=== PATIENT | male | born 1955 | race Caucasian/White ===

== ENCOUNTER 2020-09-16 10:19 | Outpatient (REF) | payer OTHER, SELFPAY ==
[2020-09-16 16:07] LABS: Abs Immature Grans 0.02 10^3/uL (0.0-0.06); Absolute Basophil Count 0.08 10^3/uL (0.0-0.2); Absolute Eosinophil Count 0.09 10^3/uL (0.0-0.7); Absolute Monocyte Count 0.49 10^3/uL (0.1-0.8); Absolute Neutrophil Count 4.12 10^3/uL (1.2-6.7); Basophils % 1.3; Eosinophils % 1.5; HCT 48.4 % (40.0-50.0); HGB 16.5 g/dL (13.5-17.5); Immature Grans % 0.3; MCH 28.9 pg (27.0-33.0); MCHC 34.1 % (32.0-36.0); MCV 84.9 fL (80-95); MPV 10.5 fL (8.0-11.0); Monocytes % 8.2; Neutrophils % 68.7; Nucleated RBC 0 %; Platelet Count 242 10^3/uL (130-400); RDW 11.9 % (11.8-14.1); RDW-SD 36.1 fL
[2020-09-16 16:22] LABS: ALT 32 U/L (16-63); AST 19 U/L (15-37); Albumin 4.2 g/dL (3.4-5.0); Alkaline Phosphatase 89 U/L (46-116); Anion Gap 9.3 mmol/L (3-11); BUN 12 mg/dL (7-18); Bilirubin, Total 0.6 mg/dL (0.2-1.0); CO2 26.7 mmol/L (21.0-32.0); CREATININE 1.09 mg/dL (0.70-1.30); Calcium 8.7 mg/dL (8.5-10.1); Calculated LDL 153 mg/dL (<100); Chloride 104 mmol/L (98-107); Cholesterol 212 mg/dL (<200); Glucose 106 mg/dL (74-106); HDL Cholesterol 34 mg/dL (40-60); Potassium 4.1 mmol/L (3.5-5.1); Sodium 140 mmol/L (136-145); Total Protein 7.1 g/dL (6.4-8.2); Triglyceride 126 mg/dL (<150)
== END 2020-09-16 10:39 ==
LOC: NCHCN 10:19
PROVIDERS: Visit Provider Physician Assistant
DX: E66.9 Obesity, unspecified (principal); F10.10 Alcohol abuse, uncomplicated; Z13.220 Encounter for screening for lipoid disorders; Z13.1 Encounter for screening for diabetes mellitus; Z83.2 Family history of diseases of the blood and blood-forming organs and certain disorders involving the immune mechanism; R04.0 Epistaxis
CPT/HCPCS: 80053; 80061; 85025

== ENCOUNTER 2022-04-12 09:27 | Outpatient (CLI) | payer MEDICARE, SELFPAY ==
--- NOTE | 2022-04-12 09:15 | DI.RAD_ITS ---
Exam(s) XR KNEE LT 3V AP,LAT,TERRA EXAM: XR KNEE LT 3V AP,LAT,TERRA CLINICAL HISTORY: left knee pain TECHNIQUE: COMPARISON: MR MR KNEE LT W/WO CONTRAST from 03/21/2022 FINDINGS: Three views were obtained. The cartilaginous joint spaces appear well maintained. 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 However, borders are somewhat diffuse and the possibility of other et iology including neoplasm is not entirely excluded. Correlation with bone scan or MRI suggested. I would note that a recent MRI from [facility] probably does not include the area in ques tion of the proximal tibia. IMPRESSION: Probably benign proximal tibial lesion, bone scan or MRI suggested for confirmation. RADIATION DOSE DELIVERED: Total DLP
== END 2022-04-12 09:28 | disposition home or self-care (01) ==
LOC: DIORS 09:27
PROVIDERS: PCP Physician Assistant; Referring Provider Physician Assistant; Visit Provider Student in an Organized Health Care Education/Training Program
DX: M71.22 Synovial cyst of popliteal space [Baker], left knee (principal)
CPT/HCPCS: 73562; 99203

== ENCOUNTER 2022-06-27 10:02 | Outpatient (REF) | payer MEDICARE, SELFPAY ==
[2022-06-27 12:15] LABS: C-Reactive Protein 0.71 mg/dL (0.0-0.3); Uric Acid 7.9 mg/dL (3.5-7.2)
== END 2022-06-27 10:03 | disposition home or self-care (01) ==
LOC: NCHCN 10:02
PROVIDERS: PCP Physician Assistant; Visit Provider Internal Medicine
DX: M10.9 Gout, unspecified (principal)
CPT/HCPCS: 84550; 86140

== ENCOUNTER 2022-07-19 13:47 | Outpatient (REF) | payer MEDICARE, SELFPAY ==
[2022-07-19 15:57] LABS: Abs Immature Grans 0.01 10^3/uL (0.0-0.06); Absolute Basophil Count 0.07 10^3/uL (0.0-0.2); Absolute Lymphocyte Count 1.03 10^3/uL (1.2-3.4); Absolute Monocyte Count 0.38 10^3/uL (0.1-0.8); Basophils % 1.4; HCT 46.8 % (40.0-50.0); HGB 16.2 g/dL (13.5-17.5); Immature Grans % 0.2; Lymphocytes % 20.6; MCH 29.1 pg (27.0-33.0); MCHC 34.6 % (32.0-36.0); MCV 84 fL (80-95); MPV 9.8 fL (8.0-11.0); Monocytes % 7.6; Neutrophils % 68.2; Platelet Count 240 10^3/uL (130-400); RBC 5.56 10^6/uL (4.36-5.78); RDW-SD 36.5 fL; WBC 4.99 10^3/uL (4.4-10.8)
[2022-07-19 16:11] LABS: Uric Acid 7.7 mg/dL (3.5-7.2)
== END 2022-07-19 13:48 | disposition home or self-care (01) ==
LOC: NCHCN 13:47
PROVIDERS: PCP Physician Assistant; Visit Provider Physician Assistant
DX: M10.9 Gout, unspecified (principal)
CPT/HCPCS: 84550; 85025

== ENCOUNTER 2022-08-17 09:55 | Outpatient (REF) | payer MEDICARE, SELFPAY ==
[2022-08-17 20:48] LABS: BUN 13 mg/dL (7-18); CREATININE 1.2 mg/dL (0.70-1.30); Calcium 8.6 mg/dL (8.5-10.1); Chloride 103 mmol/L (98-107); Estimated GFR 66.28 (mL/min/1.73m2); Glucose 147 mg/dL (74-106); Sodium 137 mmol/L (136-145)
== END 2022-08-17 09:56 | disposition home or self-care (01) ==
LOC: NCHCN 09:55
PROVIDERS: PCP Physician Assistant; Visit Provider Physician Assistant
DX: M10.9 Gout, unspecified (principal)
CPT/HCPCS: 80048; 84550

== ENCOUNTER 2023-06-04 17:59 | Outpatient (REF) | payer MEDICARE, SELFPAY ==
[2023-06-04 19:10] LABS: Abs Immature Grans 0.02 10^3/uL (0.0-0.06); Absolute Lymphocyte Count 1.56 10^3/uL (1.2-3.4); Absolute Monocyte Count 0.48 10^3/uL (0.1-0.8); Absolute Neutrophil Count 5.06 10^3/uL (1.2-6.7); Basophils % 1.3; Eosinophils % 2.7; HGB 16.8 g/dL (13.5-17.5); Immature Grans % 0.3; MCV 83 fL (80-95); MPV 10.4 fL (8.0-11.0); Monocytes % 6.5; Neutrophils % 68.2; Platelet Count 269 10^3/uL (130-400); RDW 12.2 % (11.8-14.1); RDW-SD 36.8 fL; WBC 7.42 10^3/uL (4.4-10.8)
[2023-06-04 19:34] LABS: Anion Gap 10.5 mmol/L (3-11); BUN 16 mg/dL (7-18); CO2 24.5 mmol/L (21.0-32.0); CREATININE 1.4 mg/dL (0.70-1.30); Chloride 102 mmol/L (98-107); Estimated GFR 54.75 (mL/min/1.73m2); Glucose 108 mg/dL (74-106); NT-proBNP 57 pg/mL (<300); Potassium 4.1 mmol/L (3.5-5.1); Sodium 137 mmol/L (136-145); TSH 3.17 uIU/mL (0.36-3.74)
[2023-06-04 19:44] LABS: Troponin I < 50 ng/L (<or=60)
== END 2023-06-04 18:00 | disposition home or self-care (01) ==
LOC: NCHCN 17:59
PROVIDERS: PCP Physician Assistant; Visit Provider Internal Medicine
DX: R53.83 Other fatigue (principal); R07.9 Chest pain, unspecified
CPT/HCPCS: 80048; 83880; 84443; 84484; 85025

== ENCOUNTER 2023-06-07 11:44 | Outpatient (REF) | payer MEDICARE, SELFPAY ==
[2023-06-07 18:58] LABS: Bilirubin Negative (Negative); Blood Negative (Negative); Clarity Clear (Clear); Glucose Negative (Negative); Ketones Negative (Negative); Leukocyte Esterase Negative (Negative); Nitrite Negative (Negative); Specific Gravity 1.015 (1.005-1.025); Urobilinogen 0.2 mg/dL (Up to 0.2)
[2023-06-11 15:22] LABS: Albumin, Urine % 30.1 %; Albumin, Urine mg/dL 3 mg/dL; Globulins, Urine % 69.9 %; Globulins, Urine mg/dL 6 mg/dL; Immunotyping, Urine (See Note); Total Protein Urine 9 mg/dL (See Note)
== END 2023-06-07 11:45 | disposition home or self-care (01) ==
LOC: NCHCN 11:44
PROVIDERS: PCP Physician Assistant; Visit Provider Internal Medicine
DX: N18.31 Chronic kidney disease, stage 3a (principal)
CPT/HCPCS: 84156; 84166; 86335; 81003

== ENCOUNTER 2024-03-20 09:27 | Outpatient (REF) | payer MEDICARE, SELFPAY ==
[2024-03-20 18:53] LABS: ALT 70 U/L (16-63); AST 34 U/L (15-37); Albumin 3.9 g/dL (3.4-5.0); Alkaline Phosphatase 141 U/L (46-116); Anion Gap 8.8 mmol/L (3-11); BUN 14 mg/dL (7-18); Bilirubin, Total 0.74 mg/dL (0.2-1.0); CO2 26.2 mmol/L (21.0-32.0); CREATININE 1.1 mg/dL (0.70-1.30); Calcium 8.4 mg/dL (8.5-10.1); Chloride 107 mmol/L (98-107); Estimated GFR 73.12 (mL/min/1.73m2); Glucose 149 mg/dL (74-106); LDL CHOLESTEROL 71 mg/dL (<100); Sodium 142 mmol/L (136-145); Total Protein 6.8 g/dL (6.4-8.2)
[2024-03-21 19:22] LABS: PSA, Diagnostic 70.4 ng/mL (<=4.5)
== END 2024-03-20 09:28 | disposition home or self-care (01) ==
LOC: NCHCN 09:27
PROVIDERS: PCP Physician Assistant; Visit Provider Physician Assistant
DX: I25.10 Atherosclerotic heart disease of native coronary artery without angina pectoris (principal); N40.1 Benign prostatic hyperplasia with lower urinary tract symptoms
CPT/HCPCS: 80053; 83721; 84153

== ENCOUNTER 2024-03-27 08:33 | Outpatient (REF) | payer MEDICARE, SELFPAY ==
[2024-03-27 18:30] LABS: HCT 46.7 % (40.0-50.0); HGB 16.3 g/dL (13.5-17.5); MCH 29.5 pg (27.0-33.0); MCHC 34.9 % (32.0-36.0); MCV 84 fL (80-95); MPV 10.8 fL (8.0-11.0); Platelet Count 189 10^3/uL (130-400); RBC 5.53 10^6/uL (4.36-5.78); RDW 11.9 % (11.8-14.1); WBC 6.93 10^3/uL (4.4-10.8)
[2024-03-27 18:45] LABS: Iron 105 ug/dL (65-175); Total Iron Binding Capacity 312 ug/dL (250-450); Transferrin Sat 34 % (20-55)
[2024-03-27 18:55] LABS: Ferritin 284 ng/mL (26-388)
[2024-03-28 18:16] LABS: HBs Antibody, Quant <3.1 mIU/mL (See Note); Hepatitis B Surface Ab Negative (See Note)
[2024-03-28 18:27] LABS: Hepatitis B Surface Ag Negative (Negative)
[2024-03-28 18:57] LABS: Hepatitis C Ab w Rflx HCV PCR Negative (Negative)
== END 2024-03-27 08:34 | disposition home or self-care (01) ==
LOC: NCHCN 08:33
PROVIDERS: PCP Physician Assistant; Visit Provider Physician Assistant
DX: K76.89 Other specified diseases of liver (principal)
CPT/HCPCS: 85027; 86706; 86803; 87340; 82728; 83540; 83550

== ENCOUNTER → 2024-03-27 14:07 | Outpatient (BNVA) | payer MEDICARE, SELFPAY | PROVIDERS: PCP Physician Assistant; Referring Provider Physician Assistant; Visit Provider Urology | DX: N40.1 Benign prostatic hyperplasia with lower urinary tract symptoms (principal); R35.0 Frequency of micturition; N42.89 Other specified disorders of prostate; R97.20 Elevated prostate specific antigen [PSA] | CPT/HCPCS: 99215 ==

== ENCOUNTER → 2024-03-31 10:40 | Outpatient (BNVA) | payer MEDICARE, SELFPAY | PROVIDERS: PCP Physician Assistant; Referring Provider Physician Assistant; Visit Provider Urology | DX: N42.89 Other specified disorders of prostate (principal); R97.20 Elevated prostate specific antigen [PSA] | CPT/HCPCS: 55700; 76872 ==

== ENCOUNTER 2024-03-31 16:11 | Outpatient (REF) | payer MEDICARE, SELFPAY ==
--- NOTE | 2024-03-31 11:20 | PROST_PTH ---
PATIENT: Vitor Grande LOC: [facility] U#:[id number] AGE/SX: 68/M ROOM: RE03/31/[address]: Morgan Jewell MD : [id number] BED: DIS: 03/31/2024 SPEC #: [id number] RECD: 03/31/24 17:12 STATUS: SHARRI RE #: [id number] SALINAS: 03/31/24 11:[address]: Morgan Jewell DEPT: Surgical Specimen RECD BY: Katya Dahl ENTERED: 03/31/24 17:15 SP TYPE: PROST OTHR DR: Nathalia Arreaga Tissues: 1 - PROSTATE NEEDLE BIOPSY 2 - PROSTATE NEEDLE BIOPSY 3 - PROSTATE NEEDLE BIOPSY 4 - PROSTATE NEEDLE BIOPSY 5 - PROSTATE NEEDLE BIOPSY 6 - PROSTATE NEEDLE BIOPSY 7 - PROSTATE NEEDLE BIOPSY 8 - PROSTATE NEEDLE BIOPSY 9 - PROSTATE NEEDLE BIOPSY 10 - PROSTATE NEEDLE BIOPSY 11 - PROSTATE NEEDLE BIOPSY 12 - PROSTATE NEEDLE BIOPSY Procedures: GROSS AND MICRO LEVEL 4 Comments: [id number]
== END 2024-03-31 16:12 | disposition home or self-care (01) ==
LOC: LBN 16:11
PROVIDERS: PCP Physician Assistant; Visit Provider Urology
DX: R97.20 Elevated prostate specific antigen [PSA] (principal)
CPT/HCPCS: 88305

== ENCOUNTER → 2024-04-15 10:46 | Outpatient (BNVA) | payer MEDICARE, SELFPAY | PROVIDERS: PCP Physician Assistant; Referring Provider Physician Assistant; Visit Provider Urology | DX: C61 Malignant neoplasm of prostate (principal) | CPT/HCPCS: 99214 ==

== ENCOUNTER → 2024-06-16 14:35 | Outpatient (BNVA) | payer MEDICARE, SELFPAY | PROVIDERS: PCP Physician Assistant; Visit Provider Urology | DX: C61 Malignant neoplasm of prostate (principal) | CPT/HCPCS: 99214 ==

== ENCOUNTER → 2024-08-11 13:02 | Outpatient (BNVA) | payer MEDICARE, SELFPAY | PROVIDERS: PCP Physician Assistant; Referring Provider Physician Assistant; Visit Provider Urology | DX: C61 Malignant neoplasm of prostate (principal) | CPT/HCPCS: 99214 ==

== ENCOUNTER → 2024-09-04 10:22 | Outpatient (BNVA) | payer MEDICARE, SELFPAY | PROVIDERS: PCP Physician Assistant; Referring Provider Physician Assistant; Visit Provider Urology | DX: C61 Malignant neoplasm of prostate (principal); C79.9 Secondary malignant neoplasm of unspecified site | CPT/HCPCS: 96402; 99213; J9217 ==

== ENCOUNTER → 2024-12-09 13:38 | Outpatient (BNVA) | payer MEDICARE, SELFPAY | PROVIDERS: PCP Physician Assistant; Referring Provider Physician Assistant; Visit Provider Urology | DX: C61 Malignant neoplasm of prostate (principal); C79.9 Secondary malignant neoplasm of unspecified site; Z63.79 Other stressful life events affecting family and household | CPT/HCPCS: 96402; J9217 ==

== ENCOUNTER 2024-12-09 15:06 | Outpatient (CLI) | payer MEDICARE, SELFPAY ==
[2024-12-11 10:12] LABS: PSA, Ultrasensitive 6.8 ng/mL (<= 4.5)
[2024-12-13 13:50] LABS: Testosterone, Total 13 ng/dL (240-950)
== END 2024-12-09 15:07 | disposition home or self-care (01) ==
LOC: LBO 15:06
PROVIDERS: PCP Physician Assistant; Visit Provider Urology
DX: C61 Malignant neoplasm of prostate (principal)
CPT/HCPCS: 36415; 84153; 84403

== ENCOUNTER 2025-01-20 14:25 | Outpatient (CLI) | payer MEDICARE, SELFPAY ==
[2025-01-20 14:51] LABS: Abs Immature Grans 0.02 10^3/uL (0.0-0.06); Absolute Basophil Count 0.04 10^3/uL (0.0-0.2); Absolute Eosinophil Count 0.08 10^3/uL (0.0-0.7); Absolute Lymphocyte Count 1.09 10^3/uL (1.2-3.4); Absolute Monocyte Count 0.41 10^3/uL (0.1-0.8); Absolute Neutrophil Count 2.68 10^3/uL (1.2-6.7); Basophils % 0.9 %; Eosinophils % 1.9 %; HGB 12.6 g/dL (13.5-17.5); Immature Grans % 0.5 %; Lymphocytes % 25.2 %; MCH 30.1 pg (27.0-33.0); MCHC 34.1 % (32.0-36.0); MCV 88 fL (80-95); MPV 9.7 fL (8.0-11.0); Monocytes % 9.5 %; Platelet Count 151 10^3/uL (130-400); RBC 4.19 10^6/uL (4.36-5.78); RDW 12.6 % (11.8-14.1); RDW-SD 40.3 fL; WBC 4.32 10^3/uL (4.4-10.8)
[2025-01-20 15:25] LABS: ALT 28 U/L (16-63); AST 27 U/L (15-37); Albumin 3.7 g/dL (3.4-5.0); Alkaline Phosphatase 105 U/L (46-116); Anion Gap 7.5 mmol/L (3-11); BUN 12 mg/dL (7-18); Bilirubin, Total 1.5 mg/dL (0.2-1.0); CO2 28.5 mmol/L (21.0-32.0); Calcium 8.7 mg/dL (8.5-10.1); Chloride 104 mmol/L (98-107); Estimated GFR 81.47 (mL/min/1.73m2); Glucose 94 mg/dL (74-106); Sodium 140 mmol/L (136-145); Total Protein 6.6 g/dL (6.4-8.2)
[2025-01-21 12:36] LABS: HBs Antibody, Quant <3.1 mIU/mL (See Note); Hep B Surface Ab Negative (See Note); Hepatitis B Core Antibody Negative (Negative); Hepatitis B Surface Antigen Negative (Negative)
== END 2025-01-20 14:26 | disposition home or self-care (01) ==
LOC: LBO 14:25
PROVIDERS: PCP Physician Assistant; Visit Provider Nurse Practitioner Family
DX: C71.9 Malignant neoplasm of brain, unspecified (principal)
CPT/HCPCS: 36415; 80053; 86704; 86706; 87340; 85025

== ENCOUNTER 2025-02-02 14:40 | Outpatient (CLI) | payer MEDICARE, SELFPAY ==
[2025-02-02 15:12] LABS: Abs Immature Grans 0.02 10^3/uL (0.0-0.06); Absolute Basophil Count 0.07 10^3/uL (0.0-0.2); Absolute Eosinophil Count 0.08 10^3/uL (0.0-0.7); Absolute Lymphocyte Count 0.98 10^3/uL (1.2-3.4); Absolute Monocyte Count 0.53 10^3/uL (0.1-0.8); Absolute Neutrophil Count 3.24 10^3/uL (1.2-6.7); Basophils % 1.4 %; Eosinophils % 1.6 %; HCT 37.4 % (40.0-50.0); Immature Grans % 0.4 %; Lymphocytes % 19.9 %; MCH 30.2 pg (27.0-33.0); MCHC 34.8 % (32.0-36.0); MCV 87 fL (80-95); MPV 10.3 fL (8.0-11.0); Monocytes % 10.8 %; Neutrophils % 65.9 %; Platelet Count 211 10^3/uL (130-400); RDW 12.4 % (11.8-14.1); WBC 4.92 10^3/uL (4.4-10.8)
[2025-02-02 15:45] LABS: ALT 73 U/L (16-63); AST 27 U/L (15-37); Albumin 3.6 g/dL (3.4-5.0); Alkaline Phosphatase 104 U/L (46-116); Anion Gap 7.2 mmol/L (3-11); BUN 14 mg/dL (7-18); Bilirubin, Total 0.9 mg/dL (0.2-1.0); CO2 28.8 mmol/L (21.0-32.0); CREATININE 0.9 mg/dL (0.70-1.30); Calcium 8.6 mg/dL (8.5-10.1); Chloride 106 mmol/L (98-107); Estimated GFR 92.45 (mL/min/1.73m2); Glucose 80 mg/dL (74-106); Potassium 3.8 mmol/L (3.5-5.1); Sodium 142 mmol/L (136-145); Total Protein 6.4 g/dL (6.4-8.2)
== END 2025-02-02 14:41 | disposition home or self-care (01) ==
LOC: LBO 14:40
PROVIDERS: PCP Physician Assistant; Visit Provider Nurse Practitioner Family
DX: C71.9 Malignant neoplasm of brain, unspecified (principal)
CPT/HCPCS: 36415; 80053; 85025

== ENCOUNTER 2025-02-09 09:55 | Outpatient (CLI) | payer MEDICARE, SELFPAY ==
[2025-02-09 09:02] LABS: Abs Immature Grans 0.04 10^3/uL (0.0-0.06); Absolute Basophil Count 0.02 10^3/uL (0.0-0.2); Absolute Lymphocyte Count 0.63 10^3/uL (1.2-3.4); Absolute Monocyte Count 0.48 10^3/uL (0.1-0.8); Absolute Neutrophil Count 7.93 10^3/uL (1.2-6.7); Basophils % 0.2 %; HCT 40.2 % (40.0-50.0); HGB 13.6 g/dL (13.5-17.5); Immature Grans % 0.4 %; Lymphocytes % 6.9 %; MCH 29.7 pg (27.0-33.0); MCHC 33.8 % (32.0-36.0); MCV 88 fL (80-95); MPV 9.7 fL (8.0-11.0); Monocytes % 5.3 %; Neutrophils % 87.2 %; Platelet Count 220 10^3/uL (130-400); RBC 4.58 10^6/uL (4.36-5.78); RDW 12.7 % (11.8-14.1)
[2025-02-09 09:18] LABS: ALT 41 U/L (16-63); AST 21 U/L (15-37); Alkaline Phosphatase 93 U/L (46-116); Anion Gap 10.1 mmol/L (3-11); BUN 13 mg/dL (7-18); Bilirubin, Total 0.9 mg/dL (0.2-1.0); CO2 27.9 mmol/L (21.0-32.0); CREATININE 0.9 mg/dL (0.70-1.30); Calcium 8.6 mg/dL (8.5-10.1); Chloride 105 mmol/L (98-107); Estimated GFR 92.45 (mL/min/1.73m2); Glucose 100 mg/dL (74-106); Potassium 4.2 mmol/L (3.5-5.1); Sodium 143 mmol/L (136-145); Total Protein 6.9 g/dL (6.4-8.2)
== END 2025-02-09 09:56 | disposition home or self-care (01) ==
LOC: LBO 09:56
PROVIDERS: PCP Physician Assistant; Visit Provider Nurse Practitioner Family
DX: C71.9 Malignant neoplasm of brain, unspecified (principal)
CPT/HCPCS: 36415; 80053; 85025

== ENCOUNTER 2025-02-17 10:29 | Outpatient (CLI) | payer MEDICARE, SELFPAY ==
[2025-02-17 10:46] LABS: Abs Immature Grans 0.06 10^3/uL (0.0-0.06); Absolute Basophil Count 0.09 10^3/uL (0.0-0.2); Absolute Eosinophil Count 0.18 10^3/uL (0.0-0.7); Absolute Monocyte Count 0.82 10^3/uL (0.1-0.8); Absolute Neutrophil Count 4.73 10^3/uL (1.2-6.7); Basophils % 1.2 %; Eosinophils % 2.4 %; HCT 40.7 % (40.0-50.0); HGB 13.8 g/dL (13.5-17.5); Immature Grans % 0.8 %; Lymphocytes % 20.3 %; MCH 29.7 pg (27.0-33.0); MCHC 33.9 % (32.0-36.0); MCV 88 fL (80-95); MPV 9.8 fL (8.0-11.0); Monocytes % 11.1 %; Neutrophils % 64.2 %; Platelet Count 211 10^3/uL (130-400); RBC 4.64 10^6/uL (4.36-5.78); RDW 12.7 % (11.8-14.1); RDW-SD 41.1 fL; WBC 7.38 10^3/uL (4.4-10.8)
[2025-02-17 11:05] LABS: ALT 36 U/L (16-63); AST 17 U/L (15-37); Albumin 3.8 g/dL (3.4-5.0); Alkaline Phosphatase 96 U/L (46-116); Anion Gap 8.6 mmol/L (3-11); BUN 19 mg/dL (7-18); Bilirubin, Total 0.7 mg/dL (0.2-1.0); CO2 27.4 mmol/L (21.0-32.0); Calcium 8.5 mg/dL (8.5-10.1); Chloride 106 mmol/L (98-107); Estimated GFR 81.47 (mL/min/1.73m2); Glucose 93 mg/dL (74-106); Potassium 3.8 mmol/L (3.5-5.1); Sodium 142 mmol/L (136-145); Total Protein 6.4 g/dL (6.4-8.2)
== END 2025-02-17 10:30 | disposition home or self-care (01) ==
LOC: LBO 10:29
PROVIDERS: PCP Physician Assistant; Visit Provider Nurse Practitioner Family
DX: C71.9 Malignant neoplasm of brain, unspecified (principal)
CPT/HCPCS: 36415; 80053; 85025

== ENCOUNTER 2025-02-24 12:53 | Outpatient (CLI) | payer MEDICARE, SELFPAY ==
[2025-02-24 10:39] LABS: Abs Immature Grans 0.02 10^3/uL (0.0-0.06); HCT 38.4 % (40.0-50.0); HGB 13.1 g/dL (13.5-17.5); Immature Grans % 0.3 %; MCH 29.8 pg (27.0-33.0); MCHC 34.1 % (32.0-36.0); MCV 88 fL (80-95); MPV 9.7 fL (8.0-11.0); Platelet Count 158 10^3/uL (130-400); RBC 4.39 10^6/uL (4.36-5.78); RDW 12.6 % (11.8-14.1); RDW-SD 39.8 fL; WBC 5.94 10^3/uL (4.4-10.8)
[2025-02-24 11:09] LABS: ALT 45 U/L (16-63); AST 29 U/L (15-37); Albumin 3.7 g/dL (3.4-5.0); Alkaline Phosphatase 86 U/L (46-116); Anion Gap 7.5 mmol/L (3-11); BUN 10 mg/dL (7-18); Bilirubin, Total 0.9 mg/dL (0.2-1.0); CO2 27.5 mmol/L (21.0-32.0); Calcium 8.3 mg/dL (8.5-10.1); Chloride 106 mmol/L (98-107); Estimated GFR 92.45 (mL/min/1.73m2); Glucose 103 mg/dL (74-106); Potassium 3.9 mmol/L (3.5-5.1); Sodium 141 mmol/L (136-145); Total Protein 6.4 g/dL (6.4-8.2)
== END 2025-02-24 12:54 | disposition home or self-care (01) ==
LOC: LBO 12:54
PROVIDERS: PCP Physician Assistant; Visit Provider Nurse Practitioner Family
DX: C71.9 Malignant neoplasm of brain, unspecified (principal); Z13.0 Encounter for screening for diseases of the blood and blood-forming organs and certain disorders involving the immune mechanism
CPT/HCPCS: 36415; 80053; 85025

== ENCOUNTER 2025-03-27 01:21 | Outpatient (CLI) | payer MEDICARE, SELFPAY ==
--- NOTE | 2025-03-27 | DI.MRI_ITS ---
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 Both noninfused and contrast infused sequences were performed. IV Contrast injected was 20 cc Dotarem. COMPARISON: No prior brain imaging exams were available for comparison at the time of this MRI interpretation FINDINGS: CEREBRAL PARENCHYMA: There is an area of relatively well-defined T1 hypointensity and T2 hyperintensity in the right posterior parietal region above the acceptable lobe which exhibits some mild surrounding edema and there is an overlying small skull defect which is probably a biopsy port. There is a thin extra-axial collection over this region which exhibits maximum thickness 5 mm and maximum AP measurement of 4.3 cm. This lesion cavity measures 3.6 cm craniocaudal by 2 cm AP by 1.7 cm wide. This lobulated cystic cavity exhibits some peripheral susceptibility artifact on SWI related to prior microhemorrhage but there is no evidence of gross hemorrhage at this time. In addition, there is no significant ring enhancement nor enhancing nodularity within this lesion cavity. There are no ring enhancing lesions elsewhere in the brain. There is no compression of the adjacent atrium of the right lateral ventricle. No shift of midline structures. No restricted diffusion There is no significant focal signal abnormality in the cerebellar hemispheres nor within the veronica, midbrain, and thalami. There is no periventricular signal abnormality to suggest chronic ischemic changes nor demyelinating disease. There are no ring enhancing lesions in the brain. There is no abnormal meningeal enhancement. PITUITARY GLAND: No mass nor parasellar abnormality. No obvious abnormality in the cavernous sinuses. FLOW VOIDS: The expected flow void are noted. No evidence of obvious aneurysm nor obvious vascular malformation. PARANASAL SINUSES: The visualized paranasal sinuses appear unremarkable. ORBITS: No obvious abnormal findings. Evidence of prior bilateral cataract surgery. IMPRESSION: 1. Posterior right parietal lesions site as described above. There is no abnormal ring enhancement nor enhancing mural nodularity in this region. Mild surrounding white matter findings which are probably related to post radiation changes. No significant mass effect upon the adjacent atrium of the right lateral ventricle. 2. There are no ring enhancing lesions seen elsewhere in the brain. . An addendum will follow if we receive the prior brain imaging studies for comparison. DATA REPOSITORY:
[2025-03-27] MEDS: Normal Saline Flush 10 ML SYR IVP (12:16)
[2025-03-27] MEDS: Gadoterate meglumine 20 ML SYRINGE IVP (12:16)
== END 2025-03-27 01:41 ==
LOC: DI 01:22
PROVIDERS: PCP Physician Assistant; Visit Provider Nurse Practitioner Family
DX: C71.9 Malignant neoplasm of brain, unspecified (principal)
CPT/HCPCS: 70553

== ENCOUNTER → 2025-05-07 09:02 | Outpatient (BNVA) | payer MEDICARE, SELFPAY | PROVIDERS: PCP Physician Assistant; Referring Provider Physician Assistant; Visit Provider Urology | DX: C61 Malignant neoplasm of prostate (principal); C79.9 Secondary malignant neoplasm of unspecified site | CPT/HCPCS: 96402; J9217 ==

== ENCOUNTER 2025-06-08 02:07 | Outpatient (CLI) | payer MEDICARE, SELFPAY ==
--- NOTE | 2025-06-08 | DI.MRI_ITS ---
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 TECHNIQUE: Multiplanar multisequence MRI of the brain was performed. CONTRAST MATERIAL: IV Contrast: 20 ML of Dotarem contrast administered. COMPARISON: MR MRI BRAIN WWO CONTRAST (GENERIC) from 12/12/2024 MR MRI BRAIN WWO CONTRAST (GENERIC) from 12/25/2024 MR MR BRAIN WO/W from 03/27/2025 FINDINGS: VENTRICLES AND EXTRA AXIAL SPACES: The ventricles are normal in size and morphology for the patient's age. Thin high signal collection again noted adjacent to the posterior parietal region. HEMORRHAGE: no acute hemorrhage. CEREBRAL PARENCHYMA: No focus of restricted diffusion to suggest acute infarct. Area of encephalomalacia is again noted in the right posterior parietal lobe. No abnormal surrounding enhancement. No new masses. BRAINSTEM/CEREBELLUM: Normal. CALVARIUM: Right posterior parietal craniotomy defect. ENHANCEMENT: No suspicious enhancement identified. VISUALIZED PARANASAL SINUSES/MASTOIDS: Clear. Orbits: Unremarkable. Pituitary: Not enlarged. Vasculature: Normal flow voids. IMPRESSION: Stable right posterior parietal postsurgical changes. No new abnormalities. DATA REPOSITORY:
[2025-06-08] MEDS: Normal Saline Flush 10 ML SYR IVP (08:35)
[2025-06-08] MEDS: Gadoterate meglumine 20 ML SYRINGE IVP (08:36)
== END 2025-06-08 02:27 ==
LOC: DI 02:07
PROVIDERS: PCP Physician Assistant; Visit Provider Psychiatry & Neurology Neurology
DX: C71.9 Malignant neoplasm of brain, unspecified (principal)
CPT/HCPCS: 70553

== ENCOUNTER → 2025-07-20 02:15 | Outpatient (CLI) | payer MEDICARE, SELFPAY ==
--- NOTE | 2025-07-20 | DI.MRI_ITS ---
Exam(s) MR BRAIN WO/W EXAM: MR BRAIN WO/W CLINICAL HISTORY: C71.9 Assess for changes, Glioblastoma TECHNIQUE: Multiplanar multisequence MRI of the brain was performed. CONTRAST MATERIAL: IV Contrast: 20 mL of Dotarem contrast administered. COMPARISON: MR MR BRAIN WO/W from 03/27/2025 MR MR BRAIN WO/W from 06/08/2025 FINDINGS: VENTRICLES AND EXTRA AXIAL SPACES: Normal in size and morphology for the patient's age. HEMORRHAGE: There are areas consistent with prior hemorrhage seen on the gradient images in and around the postsurgical bed. CEREBRAL PARENCHYMA: No focus of restricted diffusion to suggest acute infarct. No space-occupying lesion identified. The postsurgical cavity in the right posterior parietal lobe is unchanged. There are stable areas of hyperintense signal seen on the FLAIR and T2 weighted images surrounding the cavity site. There is new enhancement seen surrounding the cavity site particularly inferiorly (series [id number], image 13, 15 and posteriorly image 16). MIDLINE SHIFT: None. BRAINSTEM/CEREBELLUM: Normal. CALVARIUM: Normal. ENHANCEMENT: Please see the above section under cerebral parenchyma. VISUALIZED PARANASAL SINUSES/MASTOIDS: Clear. CHITIMACHA OF BOWERS: Normal flow void. PITUITARY GLAND: Unremarkable. OTHER FINDINGS: IMPRESSION: 1. New areas of enhancement around the postsurgical bed in the right parietal lobe. This may represent recurrent tumor. 2. Postsurgical changes with a resection cavity in the right posterior parietal lobe. DATA REPOSITORY:
[2025-07-20] MEDS: Normal Saline Flush 10 ML SYR IVP (12:10)
[2025-07-20] MEDS: Gadoterate meglumine 20 ML SYRINGE IVP (12:10)
== END ==
LOC: DI 02:15
PROVIDERS: PCP Physician Assistant; Visit Provider Psychiatry & Neurology Neurology
DX: C71.9 Malignant neoplasm of brain, unspecified (principal)
CPT/HCPCS: 70553